=== PATIENT | male | born 2000 | race Caucasian/White ===

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

== ENCOUNTER 2022-01-23 20:12 | Emergency (ER) | payer MEDICAID ==
[~2022-01-23] VITALS: Ht 178 cm; Wt 79.0 kg
[2022-01-23 20:58] VITALS: BP 124/68
--- NOTE | 2022-01-23 21:06 | ED EENT ---
History of Present Illness General Chief Complaint: Oral/Throat Problems Stated Complaint: SORE THROAT,NECK PAIN,JAW PAIN,HARD TO SWALLOW Source: patient Exam Limitations: no limitations History of Present Illness Date Seen by Provider: Jan 23, 2022 Time Seen by Provider: 20:52 Initial Comments Patient to ER by private conveyance chief complaint that today started experiencing some throat soreness, difficulty swallowing. Has been using throat sprays and salt water gargles. He was getting hard to move his neck so he decided to come in. He denies any fevers or chills body aches cough shortness of air. No sick contacts. No recent travel. No significant medical or surgical history. Allergies and Home Medications Allergies Coded Allergies: No Known Drug Allergies (Unverified , 02/13/10) Patient Home Medication List Home Medication List Reviewed: Yes Discontinued Medications Famotidine (Pepcid) 20 Mg Tablet, 1 EACH PO DAILY, (Reported) Discontinued Reason: No Longer Taking Entered as Reported by: THERESA TELLES on 09/02/132109 Last Action: Discontinued Hydrocodone Bit/Acetaminophen (Lortab 5 Mg Tablet) 1 Each Tablet, 1 EACH PO Q6H PRN for PAIN Discontinued Reason: No Longer Taking Prescribed by: CYNDEE ROJAS on 03/03/17 1558 Last Action: Discontinued Multivitamins (Multivitamins) 1 Each Capsule, (Reported) Discontinued Reason: No Longer Taking Entered as Reported by: DEAN CRUMP on 02/13/101944 Last Action: Discontinued Polyethylene Glycol (Miralax Btl) 119 Gm Btl, 119 GM GT, (Reported) Discontinued Reason: No Longer Taking Entered as Reported by: THERESA TELLES on 09/02/132109 Last Action: Discontinued Review of Systems Review of Systems Constitutional: No chills, No fever; malaise Eyes: Denies Blindness, Denies Blurred Vision Ears: Denies Dizziness, Denies Pain Nose: denies clots, denies congestion Mouth: denies clots, denies pain Throat: pain, swelling Respiratory: No cough, No short of breath Cardiovascular: No chest pain, No edema Gastrointestinal: No abdominal pain, No nausea Past Ynleova-Lpdpnd-Ticqow Hx Patient Social History Tobacco Use?: No Use of E-Cig and/or Vaping dev: No Substance use?: No Past Medical History Surgeries: No Respiratory: No Cardiac: No Neurological: No Gastrointestinal: Yes Chronic Constipation Musculoskeletal: No Endocrine: No Cancer: No Psychosocial: No Integumentary: No Blood Disorders: No Physical Exam Vital Signs Vital Signs - First Documented 01/23/22 20:58 Temp 36.2 Pulse 87 Resp 16 B/P (MAP) 124/68 (86) Pulse Ox 98 O2 Delivery Room Air Height, Weight, BMI Height: 5'11.00" Weight: 140lbs. oz. 63.791255rh; 14.06 BMI Method:Estimated General Appearance: WD/WN, no apparent distress Eyes: bilateral eye normal inspection, bilateral eye PERRL, bilateral eye EOMI Ears: bilateral ear auricle normal, bilateral ear canal normal, bilateral ear TM normal Nose: normal inspection; No active bleeding, No discharge Mouth/Throat: No foreign body; other (Retropharyngeal injection erythema edema of the tonsils and uvula mild and a little bit of exudate seen on the upper tonsils) Neck: No non-tender; full range of motion, supple (Palpable small anterior cervical lymphadenopathy bilaterally), normal inspection Cardiovascular: normal peripheral pulses, regular rate, rhythm Respiratory: lungs clear, normal breath sounds, no respiratory distress, no accessory muscle use Gastrointestinal: normal bowel sounds, non tender, soft Neurologic/Psychiatric: no motor/sensory deficits, alert, normal mood/affect, oriented x 3 Progress/Results/Core Measures Results/Orders Lab Results Laboratory Tests Test 01/23/22 21:04 Range/Units Influenza Type A (RT-PCR) Not Detected Not Detecte Influenza Type B (RT-PCR) Not Detected Not Detecte SARS-CoV-2 RNA (RT-PCR) Not Detected Not Detecte Group A Streptococcus Screen NEGATIVE NEGATIVE My Orders Orders - KAYLA MAHER Covid 19 Inhouse Test (01/23/22 20:27) Rapid Strep A Screen (01/23/22 20:27) Influenza A And B By Pcr (01/23/22 20:27) Vital Signs/I&O 01/23/22 20:58 Temp 36.2 Pulse 87 Resp 16 B/P (MAP) 124/68 (86) Pulse Ox 98 O2 Delivery Room Air Progress Progress Note : Time: 21:06 Progress Note Pharyngitis viral versus bacterial. We will do COVID, influenza and rapid strep swab. Recommended some routine management symptom medic treatment. Departure Impression Primary Impression: Tonsillopharyngitis Disposition: HOME, SELF-CARE Condition: Stable Departure-Patient Inst. Decision time for Depature: 21:52 Referrals: NO,LOCAL PHYSICIAN (PCP/Family) Primary Care Physician Patient Instructions: Sore Throat, Adult (DC) Add. Discharge Instructions: Salt water gargles as necessary to reduce edema and swelling in your throat so you can drink easier. Drink lots of fluids. Chloraseptic sprays, throat lozenges etc. Vapor rub such as Vicks or Mentholatum can be helpful. Salty warm fluids such as chicken noodle soup can be helpful and soothing. Symptoms tend to improve in 5 to 7 days. We will culture your swab over the next 2 to 3 days and if any bacteria grows out we will call you and get you started on an antibiotic. Otherwise this is likely viral and will resolve on its own. All discharge instructions reviewed with patient and/or family. Voiced understanding. Work/School Note: Work Release Form Date Seen in the Emergency Department: Jan 23, 2022 Return to Work: Jan 28, 2022 Restrictions: No Restrictions, Return-No Fever (24hrs) KAYLA MAHER Jan 23, 2022 21:06
== END 2022-01-23 21:55 | disposition home or self-care (01) ==
LOC: EDUNIT# 20:12 → ER 20:14
DX: B00.2 Herpesviral gingivostomatitis and pharyngotonsillitis (principal); Z20.822 Contact with and (suspected) exposure to COVID-19; Z28.310 Unvaccinated for COVID-19
CPT/HCPCS: 87430; 87636; 99283